=== PATIENT | male | born 1955 | race Caucasian/White ===

== ENCOUNTER → 2018-05-24 | Outpatient (CLI) | payer MEDICAID ==
[~2018-05-24] MED LIST: IOPAMIDOL (ISOVUE 370) 100 ML BTL IV ONE
== END ==
LOC: FIMAGING 15:23
PROVIDERS: ATTEND Internal Medicine Cardiovascular Disease
DX: I47.1 Supraventricular tachycardia (principal); Z95.0 Presence of cardiac pacemaker; Z95.2 Presence of prosthetic heart valve
CPT/HCPCS: Q9967

== ENCOUNTER 2018-05-31 10:46 | Observation (INO) | payer MEDICAID ==
[2018-05-31] MEDS ORDERED: NS 1,000 ML IV ONE (10:51)
[2018-05-31 11:22] LABS: PLATELET COUNT 197 10^3/uL (150-400)
[2018-05-31 11:31] LABS: INR 0.98 (0.83-1.16); PROTIME(PATIENT) 13.2 SEC (12.0-15.0)
--- NOTE | 2018-05-31 11:34 | PDGENHP ---
History & Physical Chief Complaint: Atrial tachycardia History of Present Illness: Increased frequency of atrial tachycardia with a cycle length 280-300ms. Episodes are associated with dizziness at peak exertion. History of MV repair with Dr. Bateman, cryoballoon ablation and slow AV flower pathway ablation with Dr. Mabry. Relevant Physical Exam: General: A&Ox4, no apparent distress. Respiratory: CTA. Cardiac: Regular rate and rhythm, S1, S2. ECG and telemtry demonstrate atrial tachycardia at 105bpm. Extremities: Pulses 2+ bilaterally, no edema Cardiorespiratory Assessment: Proceed with EP study and ablation for atrial tachycardia as planned for today. Will re-start Eliquis post-procedure
[2018-05-31] MEDS ORDERED: MIDAZOLAM 2 MG/2 ML VIAL IVP ONE (11:42)
--- NOTE | 2018-05-31 11:42 | PDANEPAE ---
ANE History of Present Illness A-flutter/A-fib with RVR ANE Past Medical History - Cardiovascular History Hx Hypertension: Yes Hx Arrhythmias: Yes Hx Chest Pain: No Hx Coronary Artery / Peripheral Vascular Disease: Yes Hx CHF / Valvular Disease: Yes Cardiovascular History Comment: + h/o MVR - Pulmonary History Hx COPD: No Hx Asthma/Reactive Airway Disease: No Hx Recent Upper Respiratory Infection: No Hx Oxygen in Use at Home: No Hx Sleep Apnea: No - Neurologic History Hx Cerebrovascular Accident: No Hx Seizures: No Hx Dementia: No - Endocrine History Hx Diabetes: No Hypothyroid: No Hyperthyroid: No Obesity: no - Renal History Hx Renal Disorders: No - Liver History Hx Hepatic Disorders: No - Neurological & Psychiatric Hx Hx Neurological and Psychiatric Disorders: No - Cancer History Hx Cancer: Yes Cancer History Comment: SKIN CANCER - Congenital Disorder History Hx Congenital Disorders: No - GI History GERD: no Hx Gastrointestinal Disorders: No - Other Health History Other Health History: DEGENERATIVE DISK DISEASE: MULTI LEVEL, SPINAL STENOSIS - Surgical History Prior Surgeries: CABG 03/2013. C-EPI 05/2013 ANE Review of Systems Review of systems is: negative Review of Systems: - Exercise capacity Exercise capacity: >=4 METS - Pacemaker Date Pacemaker Last Checked: 02/21/2014 ANE Patient History - Allergies Allergies/Adverse Reactions: acetaminophen [From Tylenol] Allergy (Verified 05/24/18 10:33) Other-Enter Comments - Home Medications Home medications: home medication list seen and reviewed Home Medications: Apixaban [Eliquis] 5 mg PO BID 05/24/18 [Last Taken 05/28/18 19:00] Metoprolol Succinate Xr [Toprol Xl 100 mg (*)] 100 mg PO DAILY 05/24/18 [Last Taken 05/26/18 06:00] amLODIPine BESYLATE [Norvasc 10 mg (*)] 10 mg PO DAILY 05/24/18 [Last Taken 08:00] - NPO status NPO Status: no food or drink >8 hours - Anes Hx Anes Hx: no prior problems - Smoking Hx Smoking Status: Never smoked ANE Labs/Vital Signs - Labs Result Diagrams: 05/31/18 11:10 05/31/18 11:10 - Vital Signs Vital Signs: reviewed preoperatively; see RN documention for details Height: 185.42 cm Weight: 83.915 kg ANE Physical Exam - Airway Neck exam: FROM Mallampati Score: Class 1 Mouth exam: normal dental/mouth exam - Pulmonary Pulmonary: no respiratory distress - Cardiovascular Cardiovascular: irregularly irregular - ASA Status ASA Status: II ANE Anesthesia Plan Anesthesia Plan: general endotracheal anesthesia
[2018-05-31] MEDS ORDERED: PROPOFOL 200 MG/20 ML VIAL ONE ×2 (12:10→14:10)
[2018-05-31] MEDS ORDERED: LIDOCAINE 1% 300 MG/30 ML SDV ONE (12:25)
[2018-05-31] MEDS ORDERED: HEPARIN/DEXTROSE 25,000 UNIT/500 ML BAG ONE (12:25)
[2018-05-31] MEDS ORDERED: ISOPROTERENOL HCL/D5W 0.2 MG/50 ML BAG IV ONE (12:25)
[2018-05-31] MEDS ORDERED: BUPIVACAINE 0.75% 10 ML SDV ONE (12:25)
[2018-05-31] MEDS ORDERED: HEPARIN 10,000 UNIT/10 ML MDV (1,000 UNIT/ML) ONE (12:25)
[2018-05-31] MEDS ORDERED: MIDAZOLAM 2 MG/2 ML VIAL ONE (12:26)
[2018-05-31] MEDS ORDERED: POTASSIUM Cl (KCl) 100 ML IV ONE ×2 (12:30→12:45)
[2018-05-31] MEDS ORDERED: fentaNYL 100 MCG/2 ML INJ ONE ×2 (13:06→13:50)
[2018-05-31] MEDS ORDERED: DEXAMETHASONE 4 MG/ML VIAL ONE ×2 (13:50)
[2018-05-31] MEDS ORDERED: ONDANSETRON 4 MG/2 ML VIAL ONE (13:50)
[2018-05-31] MEDS ORDERED: PHENYLEPHRINE HCL 100 MCG/ML SYR ONE ×2 (13:54)
[2018-05-31] MEDS ORDERED: ROCURONIUM 50 MG/5 ML VIAL ONE ×2 (15:08)
[2018-05-31] MEDS ORDERED: PHENYLEPHRINE 10 MG/ML SDV ONE (15:08)
[2018-05-31] MEDS ORDERED: MEPERIDINE 25 MG/0.5 ML AMP IVP PRN (15:17)
[2018-05-31] MEDS ORDERED: PROMETHAZINE HCL 25 MG/ML INJ IVP PRN (15:17)
[2018-05-31] MEDS ORDERED: METOCLOPRAMIDE 10 MG/2 ML VIAL IVP PRN (15:17)
[2018-05-31] MEDS ORDERED: LABETALOL HCL 5 MG/ML 20 ML MDV IVP PRN (15:17)
[2018-05-31] MEDS ORDERED: ALBUTEROL 3 ML DEYVIAL IH PRN (15:17)
[2018-05-31] MEDS ORDERED: NALOXONE HCL 0.4 MG/ML INJ IVP PRN (15:17)
[2018-05-31] MEDS ORDERED: HYDROmorphONE/DILAUDID 2 MG/ML INJ IVP PRN (15:17)
[2018-05-31] MEDS ORDERED: PHENYLEPHRINE HCL 100 MCG/ML SYR IVP PRN (15:17)
[2018-05-31] MEDS ORDERED: fentaNYL 100 MCG/2 ML INJ IVP PRN (15:17)
[2018-05-31] MEDS ORDERED: oxyCODONE IR 5 MG TAB PO PRN (15:17)
[2018-05-31] MEDS ORDERED: PROTAMINE SULFATE 50 MG/5 ML VIAL IVP ONE (15:24)
[2018-05-31] MEDS ORDERED: SUGAMMADEX SODIUM 200 MG/2 ML VIAL IVP ONE (15:28)
--- NOTE | 2018-05-31 15:54 | EPPROC ---
Electrophysiology Procedure Note: ELECTROPHYSIOLOGIC STUDY AND CATHETER MEDIATED ABLATION FOR SUBEUSTACHIAN ISTHMUS DEPENDENT COUNTERCLOCKWISE ATRIAL FLUTTER and MACROREENTRANT RIGHT ATRIAL TACHYCARDIA INDICATION: Recurrent atrial flutter post CB ablation at our institution by Dr. Joey Mabry Prior MV repair procedure PROCEDURES PERFORMED: 79515-15 EP evaluation with RA/RV/LA pace/record, with arrhythmia induction 08189-85 EP evaluation with RA/RV pace record, insert/reposition catheter, with arrhythmia induction 57331 SVT ablation Second arrhythmia 91614 3D mapping Fluoroscopy Catheters & Anesthesia: The patient arrived in the Electrophysiology Laboratory in the fasting state. The right clavicular region, right groin, and left groin area were prepped and draped in the usual sterile manner. Anesthesiologist administered general anesthesia. Appropriate non-invasive blood pressure, pulse oximetry and end- tidal CO2 monitoring was established. All catheters were placed percutaneously using the modified Seldinger technique , and advanced into position under fluoroscopic guidance. One #7 Khmer deflectable octapolar electrode catheter was advanced to the His-bundle position via the left femoral vein (2mm spacing; except the proximal ring which was 25cm from the tip used for unipolar recordings). One #7 Khmer deflectable catheter with 10 pairs of electrodes was placed via the left femoral vein into the coronary sinus. One # 7 Khmer Halo catheter was inserted through the right femoral vein and was placed at the tricuspid annulus. Heparin was administered to keep ACT > 275 seconds. Programmed stimulation was performed from the right atrium, coronary sinus ( left atrium) and right ventricle. On arrival to the Electrophysiology Laboratory the patient was in atrial flutter , CL 290 ms. Entrainment mapping confirmed CTI dependent atrial flutter In preparation for ablation of typical atrial flutter, a high-resolution 3D (3 dimensional) Carto electroanatomical map of the sub-Eustachian isthmus and right atrium was obtained during pacing of the posterolateral coronary sinus. For ablation of typical atrial flutter, Mobi sheath was placed in the right atrium. A #8 Khmer deflectable quadrapolar electrode catheter (2mm-5mm-2mm spacing) with 3.5 mm irrigated tip electrode and location sensor for the [employer] ([employer]) mapping system was inserted in the long sheath and advanced to the right atrium. Radiofrequency applications were applied between the tricuspid annulus at 0630 oclock as seen in the NIGERIAN view and the inferior vena cava. Tachycardia CL increased from 290 to 320 ms. Entrainment mapping confirmed that this was not AFL. 3D map of SVC and RA was performed during AT#2, CL 320 ms. This was a microreentrant tachycardia near the SVC RA junction, just posterior to the right atrial appendage. Ablation at this site inreased CL to 360 ms and then terminated AT. Post ablation, a high-resolution electroanatomical map of the sub-Eustachian isthmus was obtained during pacing of the posterolateral coronary sinus. This confirmed conduction block across the sub-Eustachian isthmus. Bidirectional block was also confirmed by pacing. The catheters were removed. Protamine was administered. Sheaths were removed in the EP lab after applying subcutaneous purse string suture. The patient was transferred to the cardiovascular holding area in stable condition. There were no apparent complications. CONCLUSIONS: 1. Cavotricuspid isthmus dependent counterclockwise atrial flutter. 2. Successful catheter mediated ablation of cavotricuspid isthmus achieving bi -directional conduction block across cavotricuspid isthmus. 3. 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 4. No apparent complications. Patient Problems: Problems Problem Status Onset Atrial fibrillation and flutter Acute
[2018-05-31] MEDS ORDERED: KETOROLAC 30 MG/1 ML SDV IVP ONE (17:00)
--- NOTE | 2018-05-31 18:37 | POSTANESTH ---
Post Anesthetic Evaluation Cardiovascular Status: Normal, Stable Respiratory Status: Normal, Stable Level of Consciousness/Mental Status: Can Participate in Eval Pain Control: Adequate, Prn Tx Ordered Nausea/Vomiting Control: Adequate, Prn Tx Ordered Complications Possibly Related to Anesthesia: None Noted
[2018-05-31] MEDS: APIXABAN 5 MG TAB PO SCH (21:34)
[2018-06-01 05:16] LABS: PLATELET COUNT 148 10^3/uL (150-400)
[2018-06-01] MEDS ORDERED: METOPROLOL SUCCINATE XR 50 MG TAB PO SCH (09:00)
[2018-06-01] MEDS: APIXABAN 5 MG TAB PO SCH (09:20)
--- NOTE | 2018-06-01 09:34 | CPEKG ---
Test Reason : OPEN Blood Pressure : / mmHG Vent. Rate : 071 BPM Atrial Rate : 071 BPM P-R Int : 181 ms QRS Dur : 101 ms QT Int : 431 ms P-R-T Axes : 028 057 059 degrees QTc Int : 469 ms Atrial-paced complexes Confirmed by Brennen Womack ([id number]) on 06/01/2018 9:33:50 AM Referred By: Confirmed By:Brennen Womack
--- NOTE | 2018-06-01 09:39 | CPEKG ---
Test Reason : OPEN Blood Pressure : / mmHG Vent. Rate : 106 BPM Atrial Rate : 106 BPM P-R Int : 106 ms QRS Dur : 100 ms QT Int : 315 ms P-R-T Axes : -32 069 -57 degrees QTc Int : 419 ms Sinus tachycardia Left atrial enlargement Borderline T abnormalities, inferior leads Confirmed by Brennen Womack ([id number]) on 06/01/2018 9:39:03 AM Referred By: Confirmed By:Brennen Womack
--- NOTE | 2018-06-01 09:42 | CPEKG ---
Test Reason : OPEN Blood Pressure : / mmHG Vent. Rate : 070 BPM Atrial Rate : 070 BPM P-R Int : 114 ms QRS Dur : 108 ms QT Int : 489 ms P-R-T Axes : -26 067 065 degrees QTc Int : 528 ms Atrial-paced complexes Prolonged QT interval Atrial pacing is new in comparison to prior ECG Confirmed by Brennen Womack ([id number]) on 06/01/2018 9:42:37 AM Referred By: Confirmed By:Brennen Womack
[2018-06-01 11:10] VITALS: BP 132/81
--- NOTE | 2018-06-01 12:38 | ECHO ---
[email or web address] [address] [address] Main: [phone] Fax: Transthoracic Echocardiogram Name: KIERRA CASTILLO MR#: [id number] Study Date: 06/01/2018 Study Time: 11:45 AM Date of : 1955 Age: 62 year(s) Height: 185.4 cm (73 in.) Weight: 83.92 kg (185 lb.) BSA: 2.08 m2 Gender: Male Examination: Echo Indication: F/U Post EP Study Image Quality: Adequate Contrast: Requested by: Elliott Godoy BP: 132 mmHg/81 mmHg Heart Rate: Rhythm: Indication: F/U Post EP Study Procedure Staff Batter Out: Jonna Crockett RDCS Reading Physician: Elliott Godoy MD Requesting Provider: Conclusions: Mild concentric LV hypertrophy. Normal global systolic LV function. EF is 62 %. There is paradoxic septal motion suggestive of bundle branch block, paced cardiac rhythm, or prior cardiac surgery. There is a pacemaker lead noted in the right ventricle. The left atrium is mildly dilated. The right atrium is mildly dilated. Mitral valve repair. The mitral valve prosthesis exhibits normal function. The prosthetic mitral valve is normal. Mild MV prosthesis regurgitation. Mild aortic valve regurgitation is present. Mild tricuspid regurgitation is present. Mild pulmonic valve regurgitation is noted. No pericardial effusion. Measurements: Chambers Valvular Assessment AV/MV Valvular Assessment TV/PV Normal Normal Normal Name Value Range Name Value Range Name Value Range Ao Vale (2D): 3.7 cm (1.4 cm-2.6 AV Vmax: 1.14 m/s (1 m/s-1.7 TR Vmax: 2.57 mm/s ( - ) cm) m/s) TR PGmax: 26 mmHg ( - ) IVSd (2D): 1.2 cm (0.6 cm-1.1 AV maxP mmHg ( - ) syst. PAP: 31 mmHg ( - ) cm) AV meanP mmHg ( - ) PV Vmax: 1.15 m/s (0.6 m/s-0.9 LVDd (2D): 4.6 cm (4.2 cm-5.9 MARIA LUISA (VTI): 3.8 cm ( - ) m/s) cm) MV E Vmax: 1.50 m/s ( - ) PV PGmax: 5 mmHg ( - ) LVDs (2D): 3.0 cm (2.1 cm-4 MV A Vmax: 1.03 m/s ( - ) cm) MV E/A: 1.46 ( - ) MV meanP mmHg ( - ) Patient: KIERRA CASTILLO Study Date: 06/01/2018 Page 1 of 3 11:45 AM LVPWd (2D): 1.2 cm (0.6 cm-1 MV PHT: 0.055 s ( - ) cm) MVA (Vmax): 2.1 m/s ( - ) LVOTd 2.4 cm 2.4 cm mm MVA (PHT): 4.0 s ( - ) LVEF (BP): 62 % (>=55 %) RVDd(2D): 3.2 cm (1.9 cm-3.8 cmmm) Continued Measurements: Chambers Valvular Assessment AV/MV Valvular Assessment TV/PV Name Value Name Value Name Value LADs: 4.5 cm MV DecTime: 204 m/s CVP (est.): 5 mmHg LADs Lon.8 cm MV E' Septal: 0.08 m/s LA Area: 23.1 cm2 MV E/E' Septal: 19.50 LA Volume: 71 ml MV E/E' Lateral: 15.50 LA Volume Index: 34.1 ml/m2 MV VTI: 45.50 cm RA Area: 22.8 cm2 Additional Vessels Name Value Ao Ascendin.5 cm Findings: Left Ventricle: Normal size left ventricle. Mild concentric LV hypertrophy. Normal global systolic LV function. EF is 62 %. There is paradoxic septal motion suggestive of bundle branch block, paced cardiac rhythm, or prior cardiac surgery. Right Ventricle: Normal size right ventricle. Normal RV function. There is a pacemaker lead noted in the right ventricle. Left Atrium: The left atrium is mildly dilated. Right Atrium: The right atrium is mildly dilated. Mitral Valve: Mitral valve repair. The mitral valve prosthesis exhibits normal function. The prosthetic mitral valve is normal. Prosthetic mitral valve orifice motion is normal. Mild MV prosthesis regurgitation. Aortic Valve: The aortic valve is tri-leaflet. Mild aortic valve regurgitation is present. No aortic valve stenosis is present. Tricuspid Valve: The tricuspid valve is normal in appearance and function. Mild tricuspid regurgitation is present. The pulmonary artery pressure is normal. Right ventricular systolic pressure measures 31mmHg. Pulmonic Valve: The pulmonic valve is normal in appearance and function. Mild pulmonic valve regurgitation is noted. Aorta: The aorta is normal. Normal size aortic root measuring 3.7 cm. Normal size ascending aorta measuring 3.5 cm. IVC: The IVC is normal sized. Pericardium: No pericardial effusion. (No Signature Object) Patient: KIERRA CASTILLO Study Date: 06/01/2018 Page 2 of 3 11:45 AM Patient: KIERRA CASTILLO Study Date: 06/01/2018 Page 3 of 3 11:45 AM [id number]
--- NOTE | 2018-06-01 16:49 | ASDISCHSUM ---
Discharge Information Plan Status:Home with No Needs Medically Cleared to Leave:05/31/2018 Discharge Date:06/01/2018 02:00 PM CM D/C Disposition:Home, Routine, Self-Care ADT D/C Disposition:Home, Routine, Self-Care Projected Discharge Date:06/01/2018 02:00 PM Transportation at D/C: Discharge Delay Reason: Follow-Up Date:06/01/2018 02:00 PM Discharge Slot: Final Diagnosis: Placement Information Patient Contact Information Contact Name:GENI Relationship:Sister Address: Work Phone: City:[place] Alternate Phone: [facility] Code: Email: Financial Information Financial Class:Medicaid Primary Plan Desc:MEDICAID HEALTH [employer] Primary Plan Number:[id number] Secondary Plan Desc: Secondary Plan Number: Assessment Information LACE LACE Length of stay for Answers: Less than 1 day current admission Acuity / Level of Answers: No Care: Did the patient have an inpatient admission? # of Emergency department Answers: 0 visits in the last 6 months Date Signed: 06/01/2018 04:48 PM Electronically Signed By:Sanjuana Curran RN Intervention Information
--- NOTE | 2018-06-02 04:20 | GDS ---
SUPERVISING DIVIDER OPERATOR: Elliott Godoy MD. ADMISSION DIAGNOSES: 1. Atrial tachycardia. 2. History of mitral valve repair. 3. History of atrial fibrillation ablation in 2013. DISCHARGE DIAGNOSES: 1. Counterclockwise atrial flutter, status post successful ablation. 2. 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 PROCEDURES PERFORMED DURING HOSPITALIZATION: 1. Electrocardiogram. 2. Electrophysiology study. 3. Atrial flutter ablation. 4. Ablation of micro re-entrant tachycardia. 5. Echocardiogram. HOSPITAL COURSE: The patient presented May 31, 2018, for atrial tachycardia ablation in the set ting of persistent atrial tachycardia and activity intolerance. He underwent successful ablation of his counterclockwise atrial flutter along the cavotricuspid isthmus in addition to ablation of his mi scroll assembler re-entrant tachycardia arising from the SVC-RA junction with Dr. Elliott Godoy without any intra-pro cedure complications. He has done very well in the postprocedure period, no issues overnight, he has been up ambulating around his room this morning. He is appropriate and stable for discharge home to day. CURRENT PHYSICAL EXAMINATION: GENERAL: Alert and oriented x4. No apparent distress. VITAL SIGNS: Blood pressure 120/77, heart rate 85, SpO2 96% on room air, temp 36.7. RESPIRATORY: Lungs are samreen r to auscultation without adventitious breath sounds. CARDIAC: Normal S1 and S2. No S3, S4, or mur murs. Rhythm is regular. ABDOMEN: Normoactive bowel sounds times all 4 quadrants. No masses or te nderness. Abdomen is soft to palpation. SKIN: [place], warm, dry without cyanosis, clubbing, or perip heral edema. EXTREMITIES: Bilateral pursestring sutures removed intact, without evidence of hematom a, redness, oozing, swelling, or warmth. Pulses are 2+ bilaterally, without any edema. LABORATORY STUDIES: Drawn today: WBC 10.02, CBC is otherwise stable. Elevated WBC is normal in the postprocedure setting. Troponin is 0.960, and this is also to be expected in the postprocedure sett ing. PROCEDURES: Electrophysiology study and atrial tachycardia ablation as mentioned above. Preliminary echocardiogram done this morning demonstrates normal left ventricular systolic function without new wall motion abnormalities or pericardial effusion. Electrocardiogram this morning demonstrates jasbir l sinus rhythm without new ST or T-wave abnormalities. DC interval is normal. DISCHARGE DISPOSITION: The patient will be discharged home in stable condition. He is under activit y restrictions as below. DISCHARGE MEDICATIONS: Please see discharge medication reconciliation sheet for full details. Stella avendano note, patient has been restarted on his Eliquis and we have decreased his Toprol to 50 mg daily. DISCHARGE INSTRUCTIONS: Postablation instructions reviewed in detail with the patient. We discussed activity restrictions including lifting no more than 10 pounds and avoidance of submerged bathing fo r 10 days. He will get up and walk around every 45 minutes for 45 days. We also reviewed bleeding p recautions, medication compliance, monitoring for signs and symptoms of infection, and monitoring for sustained arrhythmia. At the time of discharge, the patient verbalizes understanding of all dischar ge instructions without questions or concerns. He has a followup visit scheduled June 15 with Becca Godoy and will contact our clinic with any new or concerning symptoms prior to his upcoming visit. Greater than 30 minutes spent on this discharge. /[id number]/MODL
== END 2018-06-01 14:00 | disposition home or self-care (01) ==
LOC: FCATH 10:46 → F2W 17:55
PROVIDERS: ADMIT Internal Medicine Cardiovascular Disease; ATTEND Internal Medicine Cardiovascular Disease
DX: I48.92 Unspecified atrial flutter (principal); M48.00 Spinal stenosis, site unspecified; Z95.2 Presence of prosthetic heart valve; Z85.828 Personal history of other malignant neoplasm of skin; Z23 Encounter for immunization
CPT/HCPCS: C1731; C1732; C1766; G0008; J1100; J1644; J2250; J2370; J2405; J2704; J2720; J3010; J3480